=== PATIENT | female | born 1945 | race Caucasian/White ===

== ENCOUNTER 2016-09-25 09:20 | Outpatient (CLI) | payer MEDICARE, OTHER | END 2016-09-25 09:21 | disposition home or self-care (01) | DX: Z00.00 Encounter for general adult medical examination without abnormal findings (principal); M81.0 Age-related osteoporosis without current pathological fracture; E55.9 Vitamin D deficiency, unspecified; E78.5 Hyperlipidemia, unspecified ==

== ENCOUNTER 2016-09-25 09:39 | Outpatient (CLI) | payer MEDICARE, OTHER | END 2016-09-25 09:40 | disposition home or self-care (01) | DX: Z12.31 Encounter for screening mammogram for malignant neoplasm of breast (principal); R92.8 Other abnormal and inconclusive findings on diagnostic imaging of breast ==

== ENCOUNTER 2016-10-01 15:21 | Outpatient (CLI) | payer MEDICARE, OTHER | END 2016-10-01 15:22 | disposition home or self-care (01) | DX: R53.83 Other fatigue (principal) ==

== ENCOUNTER 2016-10-10 12:18 | Outpatient (CLI) | payer MEDICARE, OTHER | END 2016-10-10 12:19 | disposition home or self-care (01) | DX: R92.8 Other abnormal and inconclusive findings on diagnostic imaging of breast (principal) ==

== ENCOUNTER 2017-09-04 15:38 | Outpatient (CLI) | payer MEDICARE, OTHER ==
[2017-09-04 18:47] LABS: ALBUMIN 3.5 g/dL (3.2-5.5); BILIRUBIN,TOTAL 0.5 mg/dL (0.2-1.0); CREATININE 0.6 mg/dL (0.4-1.0); TOTAL PROTEIN 7.1 g/dL (6.7-8.2)
[2017-09-04 19:04] LABS: BASOPHILS % (AUTO) 0.4 %; EOSINOPHILS # (AUTO) 0.1 10^3/uL (0.0-0.7); EOSINOPHILS % (AUTO) 0.6 %; HGB - HEMOGLOBIN 12.4 g/dL (12.0-16.0); LYMPHOCYTES # (AUTO) 1.5 10^3/uL (1.5-3.5); MEAN CORPUSCULAR HEMOGLOBIN 28.8 pg (27.0-31.0); MEAN CORPUSCULAR VOLUME 87.3 fL (81.0-99.0); MEAN PLATELET VOLUME 9.1 fL (7.9-10.8); MONOCYTES # (AUTO) 1.1 10^3/uL (0.0-1.0); MONOCYTES % (AUTO) 10.2 %; NEUTROPHILS # (AUTO) 7.8 10^3/uL (1.5-6.6); NEUTROPHILS % (AUTO) 74.8 %; PLT - PLATELET COUNT 346 10^3/uL (130-450); RED BLOOD COUNT 4.32 10^6/uL (4.20-5.40); RED CELL DISTRIBUTION WIDTH 13.5 % (12.0-15.0); WHITE BLOOD COUNT 10.4 x10^3/uL (4.8-10.8)
== END 2017-09-04 15:39 | disposition home or self-care (01) ==
LOC: LAB.F 15:38
PROVIDERS: ATTEND Nurse Practitioner Family
DX: R94.5 Abnormal results of liver function studies (principal); J06.9 Acute upper respiratory infection, unspecified
CPT/HCPCS: 36415; 80053; 85025

== ENCOUNTER 2017-10-06 16:23 | Outpatient (CLI) | payer MEDICARE, OTHER ==
--- NOTE | 2017-10-07 09:47 | XRAY Report ---
TWO VIEW CHEST: 10/06/2017 CLINICAL INDICATION: Cough. COMPARISON: 10/26/2012. FINDINGS: Frontal and lateral views of the chest demonstrate a normal cardiac silhouette. The lungs are hyperinflated, compatible with COPD. Linear atelectasis is noted at the bases. No focal consolidation, effusion, or pneumothorax is present. IMPRESSION: CHRONIC OBSTRUCTIVE PULMONARY DISEASE AND MINIMAL ATELECTASIS. TD: 10/07/2017 09:46
== END 2017-10-06 16:24 | disposition home or self-care (01) ==
LOC: DI 16:23
PROVIDERS: ATTEND Internal Medicine
DX: J44.9 Chronic obstructive pulmonary disease, unspecified (principal); J98.11 Atelectasis
CPT/HCPCS: 71046

== ENCOUNTER 2018-03-12 13:36 | Outpatient (CLI) | payer MEDICARE, OTHER ==
--- NOTE | 2018-03-15 17:24 | Mammography Report ---
Procedure Date: 03/12/2018 Accession Number: [id number] / [id number] Procedure: WILLIAN - Screening Mammo Dig Bilat CPT Code: FULL RESULT: EXAM: Screening Mammo Dig Bilat DATE: 03/12/2018 1:51 PM CLINICAL HISTORY: 71-year-old female with a family history of breast cancer. TECHNIQUE: Bilateral CC and MLO views were obtained. COMPARISON: 10/10/2016, 09/25/2016, 09/05/2015, 08/14/2014. FINDINGS: The breasts demonstrate scattered fibroglandular densities bilaterally. The bilateral breasts contain typically benign skin type calcifications. The right breast also contains large rodlike calcifications regionally. No suspicious masses, clustered microcalcifications, or regions of architectural distortion are identified. IMPRESSION: Benign findings RECOMMENDATION: Routine annual screening unless otherwise clinically indicated. BIRADS CATEGORY 2: Benign findings STANDARD QUALIFYING STATEMENTS: 1. This examination was reviewed with the aid of Computer-Aided Detection (CAD). 2. A negative or benign imaging report should not delay biopsy if clinically suspicious findings are present. Consider surgical consultation if warrented. More than 5% of cancers are not identified by imaging. 3. Dense breasts may obscure an underlying neoplasm.
== END 2018-03-12 13:37 | disposition home or self-care (01) ==
LOC: DI 13:36
PROVIDERS: ATTEND Internal Medicine
DX: Z12.31 Encounter for screening mammogram for malignant neoplasm of breast (principal); Z80.3 Family history of malignant neoplasm of breast
CPT/HCPCS: 77067

== ENCOUNTER 2018-07-19 10:14 | Day surgery (SDC) | payer MEDICARE, OTHER ==
[2018-07-19] MEDS ORDERED: LACTATED RINGERS 1,000 ML IV ONE ×2 (10:33→12:18)
[2018-07-19] MEDS ORDERED: fentaNYL 250 MCG/5 ML VIAL IVP ONE (11:23)
[2018-07-19] MEDS ORDERED: MIDAZOLAM 2 MG/2 ML VIAL IVP ONE (11:23)
[2018-07-19 12:37] VITALS: BP 134/64
== END 2018-07-19 10:15 | disposition home or self-care (01) ==
LOC: SDS 10:14
PROVIDERS: ATTEND Surgery
PROC: 0DJD8ZZ Inspection of Lower Intestinal Tract, Via Natural or Artificial Opening Endoscopic (ICD-10-PCS; principal; 2018-07-19 11:15)
DX: R19.5 Other fecal abnormalities (principal); K57.30 Diverticulosis of large intestine without perforation or abscess without bleeding; K64.8 Other hemorrhoids; E78.5 Hyperlipidemia, unspecified; Z85.828 Personal history of other malignant neoplasm of skin
CPT/HCPCS: 45378; J3010; J7120

== ENCOUNTER 2018-12-24 13:20 | Outpatient (CLI) | payer MEDICARE, OTHER ==
--- NOTE | 2018-12-24 15:20 | XRAY Report ---
Reason: AGE RELATED OSTEOPOROSIS WITHOUT CURRENT PATHOLOGI Procedure Date: 12/24/2018 Accession Number: [id number] / [id number] Procedure: XR - Lumbar Spine 2 View CPT Code: FULL RESULT: EXAM: LUMBOSACRAL SPINE RADIOGRAPHY EXAM DATE: 12/24/2018 02:37 PM. CLINICAL HISTORY: Age related osteoporosis without current pathologic fracture. COMPARISONS: None. TECHNIQUE: 2l views. FINDINGS: Alignment: Normal. No spondylolisthesis or scoliosis. Bones: Five [id number] lumbar vertebral bodies are present. The bones are qualitatively osteopenic; this limits evaluation for underlying fractures or masses. There is less than 25% loss of height of the L4 vertebral body, compression fracture, age indeterminate. Disks: Degenerative disk disease is most pronounced at L3-L4, L4-L5 and L5-S1. Facets: There is severe and multilevel facet arthropathy which is more pronounced at the lumbar spine. Sacroiliac Joints: Unremarkable. Soft Tissues: Normal. The visualized bowel gas pattern is normal. IMPRESSION: Osteopenia with suspected compression fracture of L4 as described. Degenerative changes. RADIA
--- NOTE | 2018-12-24 15:21 | XRAY Report ---
Reason: AGE RELATED OSTEOPOROSIS WITHOUT CURRENT PATHOLOGI Procedure Date: 12/24/2018 Accession Number: [id number] / [id number] Procedure: XR - Sacrum/Coccyx CPT Code: FULL RESULT: EXAM: SACRUM AND COCCYX RADIOGRAPHY EXAM DATE: 12/24/2018 02:37 PM. HISTORY: Age-related osteoporosis without current pathologic fracture. COMPARISONS: None. TECHNIQUE: 2 views. FINDINGS: Alignment: Normal. The sacrum and coccyx are normally aligned. Bones: The bones are qualitatively osteopenic; this limits evaluation for underlying fractures or masses. Joints: The sacroiliac joints and visualized hips are within normal limits. Soft Tissues: Unremarkable. IMPRESSION: Osteopenia with no definite sacrococcygeal fracture. For lumbar spine findings please refer to the separate report. RADIA
--- NOTE | 2018-12-28 14:42 | DEXA Report ---
Reason: AGE RELATED OSTEOPOROSIS WITHOUT CURRENT PATHOLOGI Procedure Date: 12/24/2018 Accession Number: [id number] / [id number] Procedure: DEX - Dexa Spine and/or Hip CPT Code: FULL RESULT: EXAM: Dexa Spine and/or Hip DATE: 12/24/2018 2:00 PM CLINICAL HISTORY: AGE RELATED OSTEOPOROSIS WITHOUT CURRENT PATHOLOGY TECHNIQUE: Dual energy x-ray absorptiometry (DXA) was performed on a [employer] System. Regions measured are the AP Spine, femoral neck, and if needed forearm. COMPARISON: 09/25/2016 In accordance with the International Society for Clinical Densitometry (ISCD) guidelines, data from previous exams may be reanalyzed using current recommendations and techniques. This is done to allow a more accurate basis for comparison with the current study. FINDINGS: The data for the lumbar spine is as follows: BMD (g/cm/cm) T-SCORE Z-SCORE REGION L1 0.611 -4.3 -2.3 L2 0.775 -3.5 -1.5 L3 0.883 -2.6 -0.6 L4 1.095 -0.9 1.2 TOTAL 0.844 -2.8 -0.7 NOTE: All evaluable vertebrae are used for classification The data for the hip is as follows: BMD (g/cm/cm) T-SCORE Z-SCORE REGION Neck 0.666 -2.7 -0.5 TOTAL 0.653 -2.8 -0.8 NOTE: The femoral neck or total proximal femur, whichever is lowest, is used for classification. DXA RESULTS SUMMARY: Spine SCAN DATE AGE BMD CHANGE VS CHANGE VS PREVIOUS PREVIOUS % 12[age]24/2018 [age] 0.844 -0.094* -10.0* 09/25/2016 [age] 0[age]938 * Denotes significant change at the 95% confidence level. Denotes dissimilar scan types or analysis methods. DXA RESULTS SUMMARY: Hip SCAN DATE [age]GE BMD CHANGE VS CHANGE VS PREVIOUS PREVIOUS % [birth year][age]24/2018 [age] 0.653 -0.001 -0.2 09/25/2016 [age] 0.654 * Denotes significant change at the 95% confidence level. Denotes dissimilar scan types or analysis methods. IMPRESSION: THE WHO CLASSIFICATION BASED ON THE INTERNATIONAL REFERENCE STANDARD IS osteoporosis THE FRACTURE RISK IS HIGH. THERE HAS BEEN A STATISTICALLY SIGNIFICANT 10% DECREASE IN LUMBAR SPINE BONE MINERAL DENSITY SINCE 09/25/2016. RECOMMENDATION: Patients with diagnosis of osteoporosis or osteopenia should have regular bone mineral density assessment. For those eligible for Medicare, routine testing is allowed once every 2 years. Testing frequency can be increased for patients who have rapidly progressing disease or for those who are receiving medical therapy to restore bone mass. COMMENT: World Health Organization (WHO) definitions for osteoporosis and osteopenia: NORMAL BMD: T-score at -1.0 or higher, fracture risk is low OSTEOPENIA BMD: T-score between -1.0 and -2.5, fracture risk is increased. OSTEOPOROSIS BMD: T-score at -2.5 or lower, fracture risk is high. National Osteoporosis Foundation recommends: 1. Obtain adequate dietary calcium (at least 1200 mg per day) and vitamin D (400-800 international units per day). 2. Participate, as appropriate, in regular weightbearing and muscle-strengthening exercise. 3. Avoid tobacco use and reduce alcohol and caffeine intake. 4. For more detailed information see the website at www.NOF.org.
== END 2018-12-24 13:21 | disposition home or self-care (01) ==
LOC: DI 13:20
PROVIDERS: ATTEND Internal Medicine
DX: M81.0 Age-related osteoporosis without current pathological fracture (principal); M51.36 Other intervertebral disc degeneration, lumbar region; M51.37 Other intervertebral disc degeneration, lumbosacral region; M47.9 Spondylosis, unspecified
CPT/HCPCS: 72100; 72220; 77080

== ENCOUNTER 2019-01-28 13:53 | Outpatient (CLI) | payer MEDICARE, OTHER ==
[2019-01-28 17:53] LABS: T4 (THYROXINE) 7.99 ug/dL (6.09-12.23)
[2019-01-28 17:59] LABS: THYROID STIMULATING HORMONE 1.88 uIU/mL (0.34-5.60)
[2019-01-28 18:00] LABS: FREE T4 (FREE THYROXINE) 0.87 ng/dL (0.58-1.64)
== END 2019-01-28 13:54 | disposition home or self-care (01) ==
LOC: LAB.F 13:53
PROVIDERS: ATTEND Nurse Practitioner Family
DX: R53.83 Other fatigue (principal)
CPT/HCPCS: 36415; 84436; 84439; 84443; 84481

== ENCOUNTER 2019-02-02 15:20 | Outpatient (CLI) | payer MEDICARE, OTHER ==
--- NOTE | 2019-02-03 10:36 | Ultrasound Report ---
Reason: POSTMENOPAUSAL BLEEDING Procedure Date: 02/02/2019 Accession Number: [id number] / [id number] Procedure: US - Transvaginal CPT Code: FULL RESULT: EXAM: PELVIC ULTRASOUND EXAM DATE: 02/02/2019 04:05 PM. CLINICAL HISTORY: Postmenopausal bleeding. COMPARISON: 02/02/2019 4:03 PM. TECHNIQUE: Transvaginal and pelvic ultrasound. FINDINGS: Uterus: 4.4 x 1.9 x 4 cm, volume 17.5 cc. Anteverted position. Atrophic postmenopausal uterus. No focal mass. Parenchyma is heterogeneous. Masses: None. Endometrium: 3.4 mm. No endometrial mass or polyp. Cervix: Unremarkable. Right Ovary: Ovary not seen. No adnexal abnormality. Limitation secondary to bowel gas. Left Ovary: Ovary not seen. No adnexal abnormality. Limitation secondary to bowel gas. Free Fluid: None. Other: None. IMPRESSION: 1. No uterine mass. Heterogeneous uterine myometrium. Atrophic uterus appropriate for patient age. 2. Neither ovary seen. Both adnexa are normal. 3. No endometrial mass or polyp. Endometrium measures 3.4 mm. No evidence of endometrial carcinoma or hyperplasia. These findings may represent endometrial atrophy in a postmenopausal woman with dysfunctional uterine bleeding. If symptoms persist, patient may benefit from endometrial sampling. RADIA
== END 2019-02-02 15:21 | disposition home or self-care (01) ==
LOC: DI 15:20
PROVIDERS: ATTEND Internal Medicine
DX: N95.0 Postmenopausal bleeding (principal)
CPT/HCPCS: 76830

== ENCOUNTER 2021-03-07 11:08 | Outpatient (CLI) | payer MEDICARE, OTHER ==
--- NOTE | 2021-03-07 12:02 | DEXA Report ---
PROCEDURE: Dexa Spine and/or Hip INDICATIONS: OSTEOPOROSIS TECHNIQUE: Dual energy x-ray absorptiometry (DXA) was performed on a [employer] System. Regions measur ed are the AP Spine, femoral neck, and if needed forearm. COMPARISON: DEXA 12/24/2018 FINDINGS: Lumbar Spine: Bone Mineral Density 0.814 g/cm/cm,T score -3.0, osteoporosis Left Hip: Bone Mineral Density 0.660 g/cm/cm,T score -2.8, osteoporosis Left Femoral Neck: Bone Mineral Density 0.655 g/cm/cm, T score -2.8, osteoporosis (T score greater or equal to -1.0: NORMAL) (T score from -1.1 to -2.4: OSTEOPENIA) (T score less than or equal to -2.5 to: OSTEOPOROSIS) Impression: Decreased bone mineral density in the lumbar spine, left hip, and left femoral neck compatible with o steoporosis. Findings are stable to slightly worsened when compared to the prior study from 12/24/2018 . Patients with diagnosis of osteoporosis or osteopenia should have regular bone mineral density assess ment. For those eligible for Medicare, routine testing is allowed once every 2 years. Testing frequ ency can be increased for patients who have rapidly progressing disease or for those who are receivin g medical therapy to restore bone mass. Reviewed by: Jordan Strong MD on 03/07/2021 12:00 PM PDT Approved by: Jordan Strong MD on 03/07/2021 12:00 PM PDT Station ID: [id number]
== END 2021-03-07 11:09 | disposition home or self-care (01) ==
LOC: DI 11:08
PROVIDERS: ATTEND Nurse Practitioner Family
DX: M81.0 Age-related osteoporosis without current pathological fracture (principal)

== ENCOUNTER 2021-05-19 14:26 | Emergency (ER) | payer MEDICARE, OTHER ==
[2021-05-19 14:43] VITALS: BP 139/87
--- NOTE | 2021-05-19 15:16 | ED Physician Documentation ---
History of Present Illness - Stated complaint Stated Complaint: R SHOULDER PX - Chief complaint Chief Complaint: Ext Problem - History obtained from History obtained from: Patient - Additonal information Additional information: 76-year-old female states she has been moving heavy boxes for the last month, her right shoulder has become increasingly sore since that time. Worse with movement, better with rest. Took Motrin this morning. No numbness or tingling. No other trauma. No falls. Review of Systems Constitutional: denies: Fever, Chills GI: denies: Vomiting Musculoskeletal: denies: Neck pain, Back pain Neurologic: denies: Headache PD PAST MEDICAL HISTORY - Past Medical History Cardiovascular: None Respiratory: None Endocrine/Autoimmune: None GI: None : None HEENT: Dental implants Psych: None Musculoskeletal: None Derm: None - Past Surgical History General: Colonoscopy HEENT: Cataracts Derm: Skin cancer surgery - Present Medications Home Medications: Ambulatory Orders Medication Instructions Recorded Confirmed No Known Home Medications 07/16/18 07/16/18 - Allergies Allergies/Adverse Reactions: Allergies Allergy/AdvReac Type Severity Reaction Status Date / Time No Known Drug Allergies Allergy Verified 07/16/18 13:35 PD ED PE NORMAL - Vitals Vital signs reviewed: Yes - General General: Alert and oriented X 3, No acute distress - HEENT HEENT: Moist mucous membranes - Neck Neck: Supple, no meningeal sign, No bony TTP - Cardiac Cardiac: RRR - Respiratory Respiratory: No respiratory distress, Clear bilaterally - Derm Derm: Warm and dry - Extremities Extremities: Other (No tenderness about the right shoulder. No deformity. Full range of motion with passive range of motion, limited range of motion with active range of motion. Neurovascularly intact. Otherwise normal exam of the right shoulder.) - Neuro Neuro: Alert and oriented X 3, investigator welfare 2-12 intact, No motor deficit, No sensory deficit, Normal speech - Psych Psych: Normal mood, Normal affect Results - Vitals Vitals: Vital Signs - 24 hr 05/19/21 14:40 Temperature 36.5 C Heart Rate 72 Respiratory 16 Rate Blood Pressure 139/87 H O2 Saturation 98 Oxygen O2 Source Room air - Rads (name of study) right shoulder x-ray Radiology: Final report received, EMP read contemporaneously, See rad report PD MEDICAL DECISION MAKING - ED course Complexity details: reviewed results, re-evaluated patient, considered differential, d/w patient ED course: No acute findings on shoulder x-ray, appears to be muscular for the most part in nature. Possible mild rotator cuff injury. Placed in a sling for comfort and encourage gentle stretching. We will have her follow-up closely with her doctor. She is not to be in the sling more than 2 to 3 days. Patient counseled regarding signs and symptoms for which I believe and urgent re-evaluation would be necessary. Patient with good understanding of and agreement to plan and is comfortable going home at this time This document was made in part using voice recognition software. While efforts are made to proofread this document, sound alike and grammatical errors may occur. Departure - Departure Disposition: 01 Home, Self Care Clinical Impression: Right shoulder strain Qualifiers: Encounter type: initial encounter Qualified Code(s): S46.911A - Strain of unspecified muscle, fascia and tendon at shoulder and upper arm level, right arm, initial encounter Condition: Good Instructions: ED Strain Muscle Ext Follow-Up: THAI MOORE ARNP [Primary Care Provider] - Within 1 week Comments: You can use motrin or tylenol as needed for pain. Return if you worsen. Wear the sling for the next 2-3 days. Continue to gently stretch your shoulder. Your xray does not show any acute abnormalities today. Discharge Date/Time: 05/19/21 15:32
--- NOTE | 2021-05-19 15:20 | XRAY Report ---
PROCEDURE: Shoulder 3 View RT INDICATIONS: R shoulder pain TECHNIQUE: 3 views of the shoulder were acquired. COMPARISON: None. FINDINGS: Bones: No fractures or dislocations. No suspicious bony lesions. Visualized ribs appear intact. A ge-appropriate degenerative changes are seen. Soft tissues: No suspicious soft tissue calcifications. The visualized lung demonstrates a normal a ppearance. IMPRESSION: Age-appropriate shoulder degenerative changes are seen by plain film. If it would be helpful for clinical management decision making, please consider a dedicated, schedule d shoulder MRI for further evaluation (assuming that there is no contraindication). Reviewed by: Tho Schmitt MD on 05/19/2021 2:19 PM JERICHO Approved by: Tho Schmitt MD on 05/19/2021 2:19 PM JERICHO Station ID: [id number]
== END 2021-05-19 15:32 | disposition home or self-care (01) ==
LOC: ED 14:26
DX: S46.911A Strain of unspecified muscle, fascia and tendon at shoulder and upper arm level, right arm, initial encounter (principal)
CPT/HCPCS: 99282; 99283

== ENCOUNTER 2022-02-26 14:56 | Outpatient (CLI) | payer MEDICARE, OTHER ==
--- NOTE | 2022-02-26 17:07 | XRAY Report ---
PROCEDURE: Chest 2 View X-Ray INDICATIONS: ACUTE BRONCHITIS TECHNIQUE: 2 view(s) of the chest. COMPARISON: None. FINDINGS: Surgical changes and devices: None. Lungs and pleura: Pulmonary hyperinflation and chronic interstitial changes noted. Mediastinum: Mediastinal contours are normal. Heart size is normal. Bones and chest wall: No suspicious bony abnormalities. Soft tissues appear unremarkable. T11 wedg e-shaped compression fracture. Generalized decreased osseous mineralization present. IMPRESSION: 1. Hyperinflation chronic interstitial changes without focal infiltrate tip. 2. T11 osteopenic compression fracture Reviewed by: Pelon Johnson MD on 02/26/2022 4:05 PM JERICHO Approved by: Pelon Johnson MD on 02/26/2022 4:05 PM AKDT Station ID: [id number]
== END 2022-02-26 14:57 | disposition home or self-care (01) ==
LOC: DI.S 14:56
PROVIDERS: ATTEND Nurse Practitioner Family
DX: J20.9 Acute bronchitis, unspecified (principal); M48.54XA Collapsed vertebra, not elsewhere classified, thoracic region, initial encounter for fracture

== ENCOUNTER 2022-03-07 09:25 | Outpatient (CLI) | payer MEDICARE, OTHER ==
[2022-03-07] MEDS ORDERED: ALBUTEROL 1 PUFF INH STA (15:00)
== END 2022-03-07 09:26 | disposition home or self-care (01) ==
LOC: RT 09:25
PROVIDERS: ATTEND Nurse Practitioner Family
DX: J42 Unspecified chronic bronchitis (principal); R91.8 Other nonspecific abnormal finding of lung field
CPT/HCPCS: 94060; 94727; 94729

== ENCOUNTER 2022-06-16 09:16 | Outpatient (CLI) | payer MEDICARE, OTHER ==
[~2022-06-16 09:16] MED LIST: GADOBUTROL 7.5 MMOL/7.5 ML VIAL ONE
--- NOTE | 2022-06-16 15:05 | MRI Report ---
PROCEDURE: ABDOMEN W/WO INDICATIONS: CYST OF PANCREAS CONTRAST: gadavist 5.1ml TECHNIQUE: Coronal ultra fast SE, axial 2D spoiled GE in- and thf-ml-ciivk; axial breath-hold T2 fast SE. Dynam ic axial ultra fast GE during the administration of contrast; post-contrast coronal ultra fast GE or 2D spoiled GE with fat saturation from the hepatic dome to the iliac crests. Optional diffusion weig hted imaging and ADC may be performed. COMPARISON: CT chest 03/11/2022 FINDINGS: Image quality: Fair. Lung bases: No basal pleural effusions. Heart size is normal. Solid organs: Liver and spleen are normal in size and enhancement. T2 hyperintense cyst in the left lobe liver. Gallbladder is distended. No gallstones seen. Biliary system is non dilated. T2 hyperintense cyst at the body of the pancreas measuring 1.8 cm, (5/14). No suspicious enhancement. No mural nodule. No main duct communication. No pancreatic ductal dilatation. No peripancreatic flui d collection. No adrenal nodules. Both kidneys demonstrate normal size and enhancement, without definite hydroneph rosis. Bilateral peripelvic cysts. Tiny T2 hyperintense cortical cysts. No suspicious enhancement. Nodes and vessels: No retroperitoneal or mesenteric adenopathy by size criteria. Aorta and inferior vena cava are normal in size. Bowel and peritoneum: Unenhanced bowel loops are normal in caliber. Prominent stool the colon. No f ree fluid. Bones and soft tissues: No ventral hernias. Mild scoliosis. No aggressive appearing lesion. Possible intraosseous hemangioma. IMPRESSION: Image quality is fair. 1. Cyst at the body the pancreas measuring 1.8 cm. No suspicious imaging features demonstrated. This could represent a sidebranch IPMN. Follow-up CT pancreas (preferred) or MRI pancreas in one year is r ecommended to demonstrate stability. 2. No pancreatic or biliary ductal dilatation. 3. Benign cysts in the liver and kidneys. Reviewed by: Roberto Ace MD on 06/16/2022 3:03 PM PDT Approved by: Roberto Ace MD on 06/16/2022 3:03 PM PDT Station ID: [id number]
[2022-06-16 16:02] LABS: CALCIUM 9.2 mg/dL (8.5-10.3); CREATININE 0.6 mg/dL (0.4-1.0); POTASSIUM 4.2 mmol/L (3.5-5.0)
[2022-06-16] MEDS ORDERED: GADOBUTROL 7.5 MMOL/7.5 ML VIAL IVP ONE (18:00)
== END 2022-06-16 09:17 | disposition home or self-care (01) ==
LOC: LAB 09:16
PROVIDERS: ATTEND Nurse Practitioner Family
DX: K86.2 Cyst of pancreas (principal); K76.89 Other specified diseases of liver; N28.1 Cyst of kidney, acquired
CPT/HCPCS: 36415; 74183; 80048; A9585; 82565

== ENCOUNTER 2022-07-10 11:10 | Emergency (ER) | payer MEDICARE, OTHER ==
[2022-07-10 11:23] VITALS: BP 160/120
--- NOTE | 2022-07-10 11:52 | ED Physician Documentation ---
History of Present Illness - Stated complaint Stated Complaint: HEAD PX - Additonal information Additional information: 77-year-old female who has a history of osteoporosis presents the emergency department for evaluation of headache and neck pain and right rib pain. She was playing pickle ball yesterday and fell onto her right ribs. She was able to get up and continue playing but later that evening she was very sore so she took an Epson salt bath. When she was attempting to get out of the bathtub her feet slipped from underneath her and she fell backwards striking her head and neck on the ridge of the bathtub as well as her ribs. She ultimately got out of the bathtub but today is complaining of increased pain in her neck when turning and some pain with deep breath especially on the right side. She is not anticoagulated no loss of consciousness. Her daughter requested that she come to the emergency department to rule out rib fractures or concussion. Review of Systems Constitutional: reports: Reviewed and negative Cardiac: reports: Other (Chest wall pain) Musculoskeletal: reports: Neck pain, Joint pain (Bilateral shoulders). denies: Back pain Neurologic: reports: Reviewed and negative Psychiatric: reports: Reviewed and negative PD PAST MEDICAL HISTORY - Past Medical History Cardiovascular: None Respiratory: None Endocrine/Autoimmune: None GI: None : None HEENT: Dental implants Psych: None Musculoskeletal: None Derm: None - Past Surgical History General: Colonoscopy HEENT: Cataracts Derm: Skin cancer surgery - Present Medications Home Medications: Ambulatory Orders Medication Instructions Recorded Confirmed No Known Home Medications 07/16/18 07/10/22 - Allergies Allergies/Adverse Reactions: Allergies Allergy/AdvReac Type Severity Reaction Status Date / Time No Known Drug Allergies Allergy Verified 07/16/18 13:35 PD ED PE NORMAL - General General: Alert and oriented X 3, No acute distress, Well developed/nourished - HEENT HEENT: Atraumatic, Ears normal - Neck Neck: Other (tenderness lower cervical colum without ecchymosis, stepoff. pain with lateral r) - Cardiac Cardiac: RRR, No murmur - Respiratory Respiratory: No respiratory distress, Clear bilaterally - Abdomen Abdomen: Normal bowel sounds, Soft - Back Back: No CVA TTP, Other (Tenderness palpation right lower lateral and anterior rib wall. No obvious ecchymosis or crepitus. Full pulmonary excursion) - Derm Derm: Normal color, Warm and dry - Neuro Neuro: Alert and oriented X 3, customer service driver 2-12 intact Eye Opening: Spontaneous Motor: Obeys Commands Verbal: Oriented GCS Score: 15 Results - Vitals Vitals: Vital Signs - 24 hr 07/10/22 11:14 Temperature 36.3 C L Heart Rate 80 Respiratory 18 Rate Blood Pressure 160/120 H O2 Saturation 98 Oxygen O2 Source Room air - Rads (name of study) CT head Radiology: Final report received (No acute intracranial finding) Cervical CT Radiology: Final report received (No CT evidence of acute traumatic cervical spine injury) CT chest Radiology: Final report received (No acute rib fracture or other acute findings in the chest) Departure - Departure Disposition: 01 Home, Self Care Clinical Impression: Neck pain Contusion of rib on right side Qualifiers: Encounter type: initial encounter Qualified Code(s): S20.211A - Contusion of right front wall of thorax, initial encounter Condition: Stable Instructions: ED Contusion Chest Wall Ch Comments: Tara tate was seen today in the emergency department after you fell twice yesterday once while playing pickle ball and once when attempting to get out of the bathtub. You have some pain in your neck behind both your shoulders as well as in your right ribs. We did do a CT of your head neck and chest and do not find anything to suggest broken bones or broken ribs. I suspect that you most likely have just contusions or even some neck sprain. This will get better over the next week or so. I encourage you to be as active as you can tolerate. You can take 400 mg of ibuprofen 3 times a day with food for discomfort. You could also alternate with 500 mg of Tylenol. At any point you find that your symptoms are worsening, you develop any fevers, difficulty breathing or have chest pain then you should return immediately to the ER for second evaluation
--- NOTE | 2022-07-10 12:44 | CT Report ---
PROCEDURE: HEAD WO INDICATIONS: Headache status post fall TECHNIQUE: Noncontrast 4.5 mm thick angled axial sections acquired from the foramen magnum to the vertex. For r adiation dose reduction, the following was used: automated exposure control, adjustment of mA and/or kV according to patient size. COMPARISON: None. FINDINGS: Image quality: Excellent. CSF spaces: Basal cisterns are patent. No extra-axial fluid collections. Ventricles are normal in size and shape. Brain: No midline shift. No intracranial masses or hemorrhage. Alcaraz-white matter interface is norm al. Mild chronic microvascular ischemic changes and global cerebral volume loss, commensurate with a ge. Skull and face: Calvarium and visualized facial bones are intact, without suspicious lesions. Sinuses: Visualized sinuses and mastoids are clear. IMPRESSION: No acute intracranial finding. Mild chronic microvascular ischemic changes and global ce rebral volume loss, commensurate with age. Reviewed by: Fransico Olmos MD on 07/10/2022 12:43 PM PST Approved by: Fransico Olmos MD on 07/10/2022 12:43 PM PST Station ID: [id number]
--- NOTE | 2022-07-10 12:47 | CT Report ---
PROCEDURE: CERVICAL SPINE WO INDICATIONS: neck pain after fall TECHNIQUE: Noncontrast 3 mm thick sections acquired from the skull base to the T4 level. Sagittal and coronal r eformats were then constructed. For radiation dose reduction, the following was used: automated exp osure control, adjustment of mA and/or kV according to patient size. COMPARISON: 12/20/2015 FINDINGS: Unchanged 3 mm anterolisthesis of C4 on C5. Otherwise normal alignment. Vertebral body heights mainta ined. Normal configuration of the craniocervical junction. No fracture identified. Prevertebral and p araspinous soft tissues demonstrate no acute abnormality. IMPRESSION: No CT evidence of acute traumatic cervical spine injury. Reviewed by: Fransico Olmos MD on 07/10/2022 12:46 PM PST Approved by: Fransico Olmos MD on 07/10/2022 12:46 PM PST Station ID: [id number]
--- NOTE | 2022-07-10 13:03 | CT Report ---
PROCEDURE: CHEST WO INDICATIONS: Right rib pain status post fall TECHNIQUE: Noncontrast 1mm axial images were acquired from the pulmonary apices to the posterior costophrenic an gles. Axial 5 mm soft tissue kernel reconstructions were performed as well as 8 mm axial MIP and cor onal and sagittal 5 mm reformations. For radiation dose reduction, the following was used: automate d exposure control, adjustment of mA and/or kV according to patient size. COMPARISON: 03/11/2022 FINDINGS: Image quality: Excellent. Lungs and pleura: No acute air space opacities. No pleural effusions or pneumothorax. Central and peripheral airways are patent and normal in caliber. Mediastinum: Heart size is normal. No pericardial effusion. No mediastinal adenopathy by size crit eria. Thoracic aorta and central pulmonary arteries are normal in size. Esophagus is normal in [place]. No hiatal hernia. Bones and chest wall: No acute rib fracture identified. Suspected remote right anterior 10th rib frac ture. Mild anterior wedging at T12 is similar. Remaining vertebral body heights maintained. Abdomen: Visualized upper abdominal solid organs and bowel loops appear normal in the absence of con trast. IMPRESSION: No acute rib fracture or other acute finding in the chest. Reviewed by: Fransico Olmos MD on 07/10/2022 1:02 PM PST Approved by: Fransico Olmos MD on 07/10/2022 1:02 PM PST Station ID: [id number]
== END 2022-07-10 13:30 | disposition home or self-care (01) ==
LOC: ED 11:10
DX: S09.90XA Unspecified injury of head, initial encounter (principal); S19.9XXA Unspecified injury of neck, initial encounter; S20.211A Contusion of right front wall of thorax, initial encounter; W18.2XXA Fall in (into) shower or empty bathtub, initial encounter; Y93.E1 Activity, personal bathing and showering
CPT/HCPCS: 99282; 99284

== ENCOUNTER 2023-05-01 08:00 | Outpatient (CLI) | payer MEDICARE, OTHER ==
[2023-05-01 15:17] LABS: BILIRUBIN,URINE NEGATIVE (NEGATIVE); GLUCOSE, URINE (UA) NEGATIVE (NEGATIVE); KETONES,URINE (UA) NEGATIVE (NEGATIVE); LEUKOCYTE ESTERASE, URINE NEGATIVE (NEGATIVE); NITRITE,URINE NEGATIVE (NEGATIVE); OCCULT BLOOD,URINE NEGATIVE (NEGATIVE); PROTEIN,URINE NEGATIVE (NEGATIVE); UROBILINOGEN,URINE 0.2 (NORMAL) E.U./dL (NORMAL)
[2023-05-01 15:33] LABS: CLARITY,URINE CLEAR (CLEAR)
[2023-05-01 16:21] LABS: BACTERIA,URINE None Seen /HPF (None Seen); RBC,URINE 0-5 /HPF (0-5); SQUAMOUS EPITHELIAL CELL,UR RARE Squamous (<= Few); WBC,URINE 0-3 /HPF (0-5)
== END 2023-05-01 23:59 | disposition home or self-care (01) ==
LOC: LAB.S 08:00
PROVIDERS: ATTEND Physician Assistant
DX: R10.9 Unspecified abdominal pain (principal)
CPT/HCPCS: 81001; 87086

== ENCOUNTER 2023-05-06 12:41 | Outpatient (CLI) | payer MEDICARE, OTHER ==
[2023-05-06 15:13] LABS: BASOPHILS % (AUTO) 0.8 %; EOSINOPHILS % (AUTO) 0.6 %; HCT - HEMATOCRIT 39.5 % (37.0-47.0); HGB - HEMOGLOBIN 12.6 g/dL (12.0-16.0); LYMPHOCYTES # (AUTO) 1.9 10^3/uL (1.5-3.5); LYMPHOCYTES % (AUTO) 38.4 %; MEAN CORPUSCULAR HEMOGLOBIN 29.4 pg (27.0-31.0); MEAN CORPUSCULAR HGB CONC 31.9 g/dL (32.0-36.0); MEAN CORPUSCULAR VOLUME 92.1 fL (81.0-99.0); MEAN PLATELET VOLUME 10.8 fL (7.9-10.8); MONOCYTES # (AUTO) 0.5 10^3/uL (0.0-1.0); MONOCYTES % (AUTO) 9.7 %; NEUTROPHILS # (AUTO) 2.5 10^3/uL (1.5-6.6); NEUTROPHILS % (AUTO) 50.3 %; PLT - PLATELET COUNT 256 10^3/uL (130-450); RED BLOOD COUNT 4.29 10^6/uL (4.20-5.40); RED CELL DISTRIBUTION WIDTH 13.8 % (12.0-15.0); WHITE BLOOD COUNT 5.1 x10^3/uL (4.8-10.8)
[2023-05-06 16:02] LABS: ALBUMIN 4.1 g/dL (3.2-5.5); ALBUMIN/GLOBULIN RATIO 1.7 (1.0-2.2); BILIRUBIN,TOTAL 0.4 mg/dL (0.2-1.0); CALCIUM 9.4 mg/dL (8.5-10.3); CREATININE 0.7 mg/dL (0.6-1.3); POTASSIUM 4.4 mmol/L (3.5-4.5); TOTAL PROTEIN 6.5 g/dL (6.4-8.9)
== END 2023-05-06 12:42 | disposition home or self-care (01) ==
LOC: LAB.S 12:41
PROVIDERS: ATTEND Physician Assistant
DX: R10.9 Unspecified abdominal pain (principal)
CPT/HCPCS: 36415; 80053; 83690; 85025

== ENCOUNTER 2023-05-16 11:04 | Outpatient (CLI) | payer MEDICARE, OTHER ==
--- NOTE | 2023-05-16 18:16 | XRAY Report ---
PROCEDURE: Lumbar Spine 2 View INDICATIONS: Lumbar ago with right-sided sciatica TECHNIQUE: 3 views of the lumbar spine were acquired. COMPARISON: 12/24/2018 FINDINGS: Bones: 5 [id number] vertebrae are present. No an acute appearing vertebral body compression fr actures. There is a remote L4 fracture seen, with approximately 20% loss of height centrally No suspi cious bony lesions. Mild levoconvex scoliotic curvature is seen. Mild grade 1 anterolisthesis is seen at L3-L4. At least moderate disc space narrowing can be seen at L3-L4 and at L4-L5, with moderate disc space na rrowing at L5-S1. Facet arthropathy is seen, which is most prominent inferiorly. Soft tissues: Overlying bowel gas pattern is normal. No suspicious soft tissue calcifications. Ath erosclerotic calcification is seen. IMPRESSION: Lumbar spine degenerative changes are seen, which are worst inferiorly. Mild levoconvex scoliotic curvature is seen. Remote L4 fracture. Reviewed by: Tho Schmitt MD on 05/16/2023 5:14 PM [facility] Approved by: Tho Schmitt MD on 05/16/2023 5:14 PM [facility] Station ID: [id number]
== END 2023-05-16 11:05 | disposition home or self-care (01) ==
LOC: DI.S 11:04
PROVIDERS: ATTEND Nurse Practitioner Family
DX: M47.816 Spondylosis without myelopathy or radiculopathy, lumbar region (principal); M48.56XD Collapsed vertebra, not elsewhere classified, lumbar region, subsequent encounter for fracture with routine healing

== ENCOUNTER 2023-06-15 11:27 | Outpatient (CLI) | payer MEDICARE, OTHER | END 2023-06-15 11:28 | disposition home or self-care (01) | LOC: LAB.S 11:27 | PROVIDERS: ATTEND Internal Medicine Endocrinology, Diabetes & Metabolism | DX: M81.0 Age-related osteoporosis without current pathological fracture (principal) | CPT/HCPCS: 36415; 82306 ==